=== PATIENT | male | born 1965 | race Caucasian/White ===

== ENCOUNTER 2017-09-18 09:00 | Day surgery (SDC) | payer OTHER ==
--- NOTE | 2017-09-16 04:42 | HP ---
CC: SCAR Freeman * HISTORY AND PHYSICAL: DATE OF PLANNED ADMISSION AND SURGERY: 09/18/17 HISTORY OF PRESENT ILLNESS: Mr. Ojeda is a 52-year-old male who is admitted with a 1 cm distal right ureteral calculus for cystoscopy, right ureteroscopy, laser lithotripsy, and right ureteral stent insertion. Mr. Ojeda is a known stone former, who had spontaneously passed a 7 mm calculus about 2 years ago. He presented to the office 1 month ago with total gross painless hematuria. There was no associated flank or abdominal pain and no symptoms of renal colic. He had a renal ultrasound in the office, which showed mild right hydronephrosis and slight decrease ureteral jet from the right orifice. No calculi were seen. He was managed conservatively. Because of continued hematuria and mild right flank pain, he had a noncontrast CT of the abdomen and pelvis. The study showed a 1 cm calculus in the distal right ureter associated with mild right hydronephrosis. Because of that finding and the unlikelihood that this stone will pass spontaneously, the patient is admitted for the above procedure. PAST MEDICAL HISTORY AND SYSTEM REVIEW: He is diabetic, maintained on glipizide 10 mg daily and on Janumet mg twice a day. He takes ibuprofen as needed for pain. He denies any cardiac or pulmonary diseases or symptoms. He has sleep apnea, on CPAP. He denies any allergies to medications. He is a nonsmoker. PHYSICAL EXAMINATION GENERAL: He is an overweight, otherwise healthy looking white male. VITAL SIGNS: Blood pressure 140/84. LUNGS: Clear. HEART: Regular and rhythmic. No murmurs. ABDOMEN: Soft. No masses, no tenderness, no CVA tenderness. IMPRESSION: 1. 1 cm distal right ureteral calculus causing recurrent episodes of gross hematuria and episodes of mild right flank pain. 2. Diabetes mellitus. 3. Sleep apnea. PLAN: Plan is for cystoscopy, right ureteroscopy, laser lithotripsy, and right ureteral stent insertion. I discussed the above plans with the patient. Some of the potential complications including requiring more than one procedure to render him stone- free, incidence of ureteral stricture. All his questions were answered. [id number]/[facility] #: [id number] SUNITA
[~2017-09-18 09:00] MED LIST: Buffered Lidocaine 0.9% SYRIN* 5 ML/SYR SYRINGE INTRADERM ONE; Famotidine IV* 10 MG/ML 2 ML (20 mg) IV ONE
[2017-09-18] MEDS ORDERED: cefTRIAXone(*) 2 GM ADDV.VIAL IVPB ONE (09:34)
[2017-09-18] MEDS ORDERED: Buffered Lidocaine 0.9% SYRIN* 5 ML/SYR SYRINGE ONE (09:34)
[2017-09-18] MEDS ORDERED: Famotidine IV* 10 MG/ML 2 ML (20 mg) ONE (09:34)
[2017-09-18 09:57] VITALS: BP 130/91
[2017-09-18] MEDS ORDERED: Iohexol 180 (CONTRAST) 10 ML SDV IV ONE (10:50)
[2017-09-18] MEDS ORDERED: fentaNYL* 50 MCG/ML 2 ML VIAL (100 MCG VIAL) ONE (10:55)
[2017-09-18] MEDS ORDERED: Midazolam* 1 MG/ML 5 ML VIAL (5 MG) ONE ×2 (10:55→11:23)
[2017-09-18] MEDS ORDERED: Ondansetron INJ* 2 MG/ML VIAL IV PRN (10:59)
[2017-09-18] MEDS ORDERED: HYDROcodone/ACETAMIN 5-325 MG* 1 TAB PO PRN (10:59)
[2017-09-18] MEDS ORDERED: Naloxone* 0.4 MG/ML 1 ML VIAL IV PRN (10:59)
[2017-09-18] MEDS ORDERED: oxyCODONE/Acetamin 5/325 MG* TAB PO PRN (10:59)
[2017-09-18] MEDS ORDERED: fentaNYL* 50 MCG/ML 2 ML VIAL (100 MCG VIAL) IV PRN (10:59)
--- NOTE | 2017-09-18 12:43 | RAD ---
INDICATION: Right ureteral stent insertion COMPARISONS: CT dated September 10, 2016 TECHNIQUE: Fluoroscopy was provided for a retrograde pyelogram and stent placement. Total fluoroscopy time is: 9 seconds FINDINGS: Spot images demonstrate contrast within the renal collecting system. A ureteral stent is noted. IMPRESSION: FLUOROSCOPY WAS PROVIDED FOR A RETROGRADE PYELOGRAM AND STENT PLACEMENT CPT II Codes: G9500
--- NOTE | 2017-09-19 07:59 | OP ---
CC: SCAR Freeman * DATE OF OPERATION: 09/18/17 - SDS DATE OF : 63 SURGEON: Raul Mauricio MD ANESTHESIOLOGIST: Zhen Garrison MD ANESTHESIA: Spinal. PRE-OP DIAGNOSIS: Distal right ureteral calculus (1.2 cm). POST-OP DIAGNOSIS: Distal right ureteral calculus (1.2 cm). OPERATIVE PROCEDURE: 1. Cystoscopy. 2. Right ureteroscopy, laser lithotripsy of distal right ureteral calculus. 3. Right retrograde pyelography and placement of right ureteral stent (6 Algerian ). INDICATIONS: Mr. Ojeda is a 52-year-old white male, who is a stone former, who presented about 1 month ago with recurrent episodes of gross painless hematuria. He then starting to have mild right lower quadrant pain. Work-up with noncontrast CT showed a 1.2-cm calculus in the distal right ureter associated with mild right hydronephrosis. Because of the size of the stone and the duration of his symptoms, the above procedure was advised and accepted. PATHOLOGY AT CYSTOSCOPY: The penile and bulbar urethrae looked normal. The prostatic urethra measured about 2.5 cm in length and there was early prostate enlargement. Examination of the bladder showed no suspicious lesions. The bladder and mucosa looked normal. There was slight edema around the right trigone. No calculi or diverticula were noted in the bladder. Upon right ureteroscopy, a calculus was noted in the distal ureter about 2 cm above the level of the orifice. The calculus measured about 1.2 cm and had the gross appearance of a calcium oxalate stone. Right retrograde pyelography showed no hydronephrosis. DESCRIPTION OF PROCEDURE: After successful spinal anesthesia, the patient was placed in the lithotomy position and was prepped and draped for cystoscopy. Cystoscopy was performed. The bladder was carefully inspected and no abnormalities or suspicious lesions were noted. A flexible-tipped guidewire was then introduced into the right orifice and positioned under fluoroscopy into the area of the renal pelvis. A 6.5 semi-rigid ureteroscope was then introduced inside the bladder under direct vision. A flexible-tipped spiral basket was introduced through the port of the ureteroscope and the flexible tip was then introduced into the right orifice alongside the guidewire. That allowed the atraumatic introduction of the ureteroscope into the ureter. The calculus was identified. The basket was deployed proximal to the stone to avoid its proximal migration. A size 550 micron laser fiber was then introduced through the other port of the ureteroscope and the stone was broken using the laser into multiple fragments. Care was taken not to cause any injury to the ureteral wall. The stone fragments were then extracted with the basket. A final inspection showed no residual significant stone fragments, and intact ureteral wall. The ureteroscope was removed keeping the guidewire in place. Retrograde pyelography was performed and a size 6-Algerian stent was placed with the proximal end coiling in the renal pelvis and the distal end coiling inside the bladder. The bladder was then irrigated and the larger stone fragments were evacuated and sent for stone analysis. A size 16-Algerian Llanos catheter was then passed inside the bladder and the balloon inflated with 10 cc of water. The patient tolerated the procedure well and left the operating room in good condition. The plan is leave the stent in place for 10 days, it will be removed in the office under local anesthesia. [id number]/[facility] #: [id number] SUNITA
== END 2017-09-18 13:34 | disposition home or self-care (01) ==
LOC: OR 09:00
PROVIDERS: ATTEND Urology
DX: N13.2 Hydronephrosis with renal and ureteral calculous obstruction (principal); R31.0 Gross hematuria; Z87.442 Personal history of urinary calculi; E11.9 Type 2 diabetes mellitus without complications; Z79.84 Long term (current) use of oral hypoglycemic drugs; G47.33 Obstructive sleep apnea (adult) (pediatric); I10 Essential (primary) hypertension; M54.5 Low back pain; F11.90 Opioid use, unspecified, uncomplicated
CPT/HCPCS: 74420; 82365; 88300; C1876; J0696; J2250; J3010